=== PATIENT | male | born 1990 | race African-American/Black ===

== ENCOUNTER 2017-02-18 20:32 | Emergency (ER) | payer OTHER ==
[~2017-02-18] VITALS: Ht 165.1 cm; Wt 68.0 kg
[2017-02-18 20:46] LABS: HEMOGLOBIN 14.9 gm/dL (14.0-18.0); MCH 32.3 pg (26.0-34.0); MCHC 33.9 g/dL (28.0-37.0); MCV 95.3 fL (80.0-100.0); RBC 4.62 mil/uL (4.50-6.00); RDW 13.6 % (10.5-14.5); WBC 8.2 thou/uL (4.0-11.0)
[2017-02-18 20:46] LABS: POC CA IONIZED 4.8 mg/dL (4.5-5.3); POC CREATININE 1.2 mg/dL (0.6-1.3); POC POTASSIUM 3.1 mmol/L (3.5-5.1)
[2017-02-18 20:55] VITALS: BP 131/75
== END 2017-02-18 21:08 | disposition short-term general hospital (02) ==
LOC: ER 20:32
PROVIDERS: Emergency Medicine
DX: S21.201A Unspecified open wound of right back wall of thorax without penetration into thoracic cavity, initial encounter (principal); S05.71XA Avulsion of right eye, initial encounter; W34.00XA Accidental discharge from unspecified firearms or gun, initial encounter; Y93.89 Activity, other specified; Y92.89 Other specified places as the place of occurrence of the external cause; Y99.8 Other external cause status